=== PATIENT | female | born 1960 | race Caucasian/White ===

== ENCOUNTER → 2019-10-02 | Outpatient (CLI) | payer BC ==
--- NOTE | 2019-10-03 15:41 | MAM ---
EXAM DESCRIPTION: 3D Screening BILATERAL : Digital Mammography. CLINICAL HISTORY: 59 years Female ANNUAL SCREENING left breast cyst. No other complaints. No personal history of breast cancer. Female sibling with breast cancer at age 56. Menarche age 12. Childbirth age 17. Postmenopausal age unknown. HRT 5 or more years ago.. Lifetime risk of developing breast cancer (Tyrer-Cuzick model)(%): 13.5. COMPARISON: None available.. No prior reports available. TECHNIQUE: Bilateral CC and MLO projection full-field images, digital tomosynthesis mammographic technique Bilateral digital 2-D full-field MLO images. and CC images. CAD available for 2-D images. FINDINGS: The breast parenchymal density pattern is: Scattered areas of fibroglandular density. No skin thickening or nipple retraction. Bilateral axillary lymph nodes. Bilateral vascular calcifications. Bilateral solitary microcalcifications. Mass density lower inner quadrant left breast 9:00 position approximately 5 cm from the nipple. No definite microcalcifications. Dimensions are approximately 4.0 x 3.4 x 4.6 cm. Of the fibroglandular tissues are predominantly in the anterior third. Bilateral skin calcifications. Partially circumscribed mass in the posterior third of the lower inner quadrant of the right breast measuring approximately 1 cm in greatest diameter. IMPRESSION: 4 cm mass lower inner quadrant left breast and 1 cm mass lower inner quadrant right breast. BI-RADS CATEGORY: 0 - INCOMPLETE- Need prior breast imaging for comparison. FOLLOW-UP: Comparison with prior examination(s) when available. Written communication explaining the results and follow-up will be mailed to the patient and referring care provider. Electronically signed by: Rizwan Alvarado MD 10/03/2019 3:39 PM [facility]
== END ==
LOC: MAMMO 11:13
PROVIDERS: ATTEND Nurse Practitioner Family
DX: Z12.31 Encounter for screening mammogram for malignant neoplasm of breast (principal); N63.24 Unspecified lump in the left breast, lower inner quadrant